=== PATIENT | female | born 1970 | race Caucasian/White ===

== ENCOUNTER → 2016-05-19 | Outpatient (CLI) | payer OTHER ==
[~2016-05-19] MED LIST: ALPR-411 PO; BUPR200T2 PO; BUSP30TA2 PO; CHN5 PO; CLR10 PO; DICY10CA12 PO; DOLU1TAB PO; DOXE50CA3 PO; DXY100 PO; EMTR1TAB10 PO; FLUO10CA48 PO; FLUO40CA8 PO; HYOS0.1271 SL; LEVOIUD PV; LOPE1TAB25 PO; MULTCAP42 PO; NITR1OIN PR; OMEP40CA PO; PNT500 PO; PROM25TA16 PO; TRV PO; ZOLP10TA PO
--- NOTE | 2016-05-19 12:37 | DIAGNOSTIC IMAGING REPORT ---
CHEST CT WITHOUT CONTRAST CT DOSE: 272.52 mGy.cm HISTORY: Follow-up pulmonary nodule. R91.1 Solitary pulmonary nodule TECHNIQUE: Multiaxial CT images of the chest were performed without contrast. COMPARISON: Chest CT 03/12/2015. Chest CT 08/25/2013. FINDINGS: Stable 3 mm nodule within the lingula on image 162. Stable 3 mm nodule within the left lower lobe on image 181. Stable 8 x 6 mm nodule within the right lower lobe on image 225. Stable 3 mm subpleural nodule within the right middle lobe on image 183. Interval development of multiple ground glass tree-in-bud nodules seen within the bilateral upper lobes and left lower lobe. This is most pronounced within the right upper lobe. The central airways are patent. No pleural effusions. No pneumothorax. No mediastinal or hilar lymphadenopathy. Normal caliber thoracic aorta. The heart is normal in size. Stable 7 mm hypodense lesion within the left hepatic lobe. This is too small to characterize but favors a cyst. Normal spleen and adrenal glands. IMPRESSION: 1. The previously described bilateral pulmonary nodules remain stable. Specifically, the 8 x 6 mm nodule within the right lower lobe is unchanged. These demonstrate greater than 2 year stability and are therefore considered to be benign. 2. Interval development of multiple scattered groundglass tree-in-bud nodules seen within the bilateral upper lobes and left lower lobe. This favors an infectious bronchiolitis. Electronically signed by: Saurabh Calloway M.D. 05/19/2016 12:35 PM Dictated Date/Time: 05/19/2016 12:24 PM
== END | disposition home or self-care (01) ==
LOC: C.CTS 11:44
PROVIDERS: ATTEND Internal Medicine Pulmonary Disease
DX: R31.1 Benign essential microscopic hematuria (principal)

== ENCOUNTER → 2016-07-08 | Day surgery (SDC) | payer OTHER ==
[2016-04-14 15:28] VITALS: BMI 32.0
[2016-06-26 12:40] VITALS: Ht 154.9 cm; Wt 77.3 kg
[~2016-07-08] VITALS: Ht 154.9 cm; Wt 77.3 kg
[~2016-07-08] MED LIST changes: +LIDOCAINE HCL 2% 2 ML VIAL (20MG/ML) ONE; +PROPOFOL IV EMULSION 10 MG/ML 20 ML VIAL IV ONE; -TRV PO
--- NOTE | 2016-07-08 09:02 | Endo History and Physical ---
History & Physical Date of Service: Jul 08, 2016. Chief Complaint: CROHN'S Referring Physician: DR. FORREST History of Present Illness 46 yo CF who presents for colonoscopy secondary to Crohn's Disease. Past Medical History Other Psy. Disorders, Gastrointestinal Disorder, Anxiety, Reflux, Cancer, Depression Past Surgical History Hx Cardiac Surgery: No Hx Internal Defibrillator: No Hx Pacemaker: No Hx Abdominal Surgery: Yes (TUBAL LIGATION, SMALL BOWEL RESECTION) Hx of Implantable Prosthesis: No Hx Post-Op Nausea and Vomiting: No Hx Cancer Surgery: Yes (SKIN CANCER REMOVAL) Hx Thoracic Surgery: No Hx Orthopedic: Yes (BROKEN SMALL FINGER AND LEFT ARM FX REPAIR) Hx Urinary Tract Surgery: No Family History IBD Social History Smoking Status: Current Every Day Smoker Hx Substance Use: Yes (QUIT APRIL 2012) Hx Alcohol Use: Yes (QUIT JULY 2015) Allergies Coded Allergies: No Known Allergies (Verified , 07/08/16) Current Medications Reported Home Medications Medications Dose Route/Sig Max Daily Dose Days Date Category Chantix (Varenicline Tartrate) 0.5 Mg Tab 0.5 Mg PO DIRECTED 06/26/16 Reported Descovy 200-25 mg (Emtricitabine-Tenofovir Alafen) 1 Tab Tab 1 Tab PO QAM 06/26/16 Reported Prozac (Fluoxetine HCl) 10 Mg Cap 10 Mg PO QAM 04/14/16 Reported Prozac (Fluoxetine HCl) 40 Mg Cap 40 Mg PO QAM 09/10/15 Reported Sinequan (Doxepin HCl) 50 Mg Cap 2 Cap PO HS 08/20/15 Reported Prilosec (Omeprazole) 40 Mg Capcr 40 Mg PO QAM 08/20/15 Reported Wellbutrin Sr (Bupropion HCl) 200 Mg Ertab 200 Mg PO BID 05/18/14 Reported Tivicay (Dolutegravir Sodium) 50 Mg Tab 50 Mg PO QAM 03/02/14 Reported Rectiv (Nitroglycerin (Intra-Anal)) 0.4 % Oin 1 Inch IN BID PRN 03/02/14 Reported Promethazine HCl 25 Mg Tab 25 Mg PO TID PRN 03/02/14 Reported Mirena (Levonorgestrel (Iud)) 20 Mcg/24 Hr Iud 1 Dose PV Q 5 YEARS 03/02/14 Reported Hyoscyamine Sulfate 0.125 Mg Tab 0.125 Mg SL TID PRN 03/02/14 Reported Doxycycline Hyclate 100 Mg Cap 100 Mg PO QPM 03/02/14 Reported Dicyclomine Hcl 10 Mg Cap 10 Mg PO TID 03/02/14 Reported Buspirone Hcl 30 Mg Tab 30 Mg PO BID 03/02/14 Reported Ambien (Zolpidem Tartrate) 10 Mg Tab 10 Mg PO HS PRN 09/24/12 Reported Pentasa (Mesalamine) 500 Mg Cap 2 Tab PO BID 09/24/12 Reported Multivitamins (Multiple Vitamin) 1 Cap Cap 1 Chw PO QAM 09/24/12 Reported Loperamide Hcl 2 Mg Tab 2 Mg PO DIRECTED PRN 09/24/12 Reported Claritin (Loratadine) 10 Mg Tab 10 Mg PO QAM 09/24/12 Reported Xanax (Alprazolam) 0.5 Mg Tab 0.5 Mg PO QID PRN 09/24/12 Reported Vital Signs Weight (Kilograms): 77.27 Height (Feet): 5 Height (Inches): 1 Date Time Temp Pulse Resp B/P Pulse Ox O2 Delivery O2 Flow Rate FiO2 07/08/16 08:08 36.9 82 16 109/76 96 Room Air Physical Exam General Appearance: WD/WN, no apparent distress Respiratory/Chest: Auscultation: breath sounds normal Cardiovascular: Heart Auscultation: RRR Abdomen: Bowel Sounds: normal Inspection & Palpation: soft, non-distended, no tenderness, guarding & rebound Assessment and Plan Assessment: 46 yo CF who presents for colonoscopy secondary to Crohn's Disease. Plan: Proceed with colonoscopy.
--- NOTE | 2016-07-08 09:30 | Discharge Instructions ---
Endoscopy Patient Instructions Date / Procedure(s) Performed Jul 08, 2016. Colonoscopy Allergy Information Coded Allergies: No Known Allergies (Verified , 07/08/16) Discharge Date / Findings Jul 08, 2016. Anal nodule s/p biopsies Hemorrhoids Random colon biopsies Román-Terminal ileum ulcer Biopsies of terminal ileum Medication Instructions OK to resume all medications today as prescribed. Reported Home Medications Medications Dose Route/Sig Max Daily Dose Days Date Category Chantix (Varenicline Tartrate) 0.5 Mg Tab 0.5 Mg PO DIRECTED 06/26/16 Reported Descovy 200-25 mg (Emtricitabine-Tenofovir Alafen) 1 Tab Tab 1 Tab PO QAM 06/26/16 Reported Prozac (Fluoxetine HCl) 10 Mg Cap 10 Mg PO QAM 04/14/16 Reported Prozac (Fluoxetine HCl) 40 Mg Cap 40 Mg PO QAM 09/10/15 Reported Sinequan (Doxepin HCl) 50 Mg Cap 2 Cap PO HS 08/20/15 Reported Prilosec (Omeprazole) 40 Mg Capcr 40 Mg PO QAM 08/20/15 Reported Wellbutrin Sr (Bupropion HCl) 200 Mg Ertab 200 Mg PO BID 05/18/14 Reported Tivicay (Dolutegravir Sodium) 50 Mg Tab 50 Mg PO QAM 03/02/14 Reported Rectiv (Nitroglycerin (Intra-Anal)) 0.4 % Oin 1 Inch [place] BID PRN 03/02/14 Reported Promethazine HCl 25 Mg Tab 25 Mg PO TID PRN 03/02/14 Reported Mirena (Levonorgestrel (Iud)) 20 Mcg/24 Hr Iud 1 Dose PV Q 5 YEARS 03/02/14 Reported Hyoscyamine Sulfate 0.125 Mg Tab 0.125 Mg SL TID PRN 03/02/14 Reported Doxycycline Hyclate 100 Mg Cap 100 Mg PO QPM 03/02/14 Reported Dicyclomine Hcl 10 Mg Cap 10 Mg PO TID 03/02/14 Reported Buspirone Hcl 30 Mg Tab 30 Mg PO BID 03/02/14 Reported Ambien (Zolpidem Tartrate) 10 Mg Tab 10 Mg PO HS PRN 09/24/12 Reported Pentasa (Mesalamine) 500 Mg Cap 2 Tab PO BID 09/24/12 Reported Multivitamins (Multiple Vitamin) 1 Cap Cap 1 Chw PO QAM 09/24/12 Reported Loperamide Hcl 2 Mg Tab 2 Mg PO DIRECTED PRN 09/24/12 Reported Claritin (Loratadine) 10 Mg Tab 10 Mg PO QAM 09/24/12 Reported Xanax (Alprazolam) 0.5 Mg Tab 0.5 Mg PO QID PRN 09/24/12 Reported Provider Instructions Activity Restrictions - No exercising or heavy lifting for 24 hours. - Do not drink alcohol the day of the procedure. - Do not drive a car or operate machinery until the day after the procedure. - Do not make any important decisions or sign important papers in 24 hours after the procedure. Following Day: - Return to full activity which may include returning to work/school. Diet Start your diet with liquids and light foods (jello, soup, juice, toast). Then eat your usual diet if not nauseated. Treatment For Common After Affects For mild abdominal pain, bloating, or excessive gas: - Rest - Eat lightly - Lie on right side Follow-Up Information Follow-up with DR. FORREST as scheduled Anesthesia Information What You Should Know You have had a procedure that required some medicine to reduce anxiety and discomfort. This treatment is called moderate sedation. After receiving the treatment, you may be sleepy, but you will be able to breathe on your own. The effects of the treatment may last for several hours. Follow these instructions along with Activity/Diet recommendations noted above: * Do NOT do anything where dizziness or clumsiness would be dangerous. * Rest quietly at home today, then you can be up and about tomorrow. * Have a responsible person stay with you the rest of today. * You may have had an I.V. today. If so, you may take the dressing off later today. Recommendations Call your doctor if: * Trouble breathing * Continuous vomiting for more than 24 hours * Temperature above 101 degrees * Severe abdominal pain or bloating * Pain not relieved by pain medicine ordered * There is increased drainage or redness from any incision * A large amount of rectal bleeding greater than 2-3 tablespoons. (If you had a polyp/s removed or have hemorrhoids, a small amount of blood - from the rectum is to be expected.) * You have any unanswered questions or concerns. IN THE EVENT OF A SERIOUS EMERGENCY, GO TO THE NEAREST EMERGENCY ROOM Your discharge instructions were prepared by provider Didier Dacosta. Patient Instructions Signature Page Dorothy Duggan Patient (or Guardian) Signature/Date: I have read and understand the instructions given to me by my caregivers. Caregiver/RN/Doctor Signature/Date: The above-named patient and/or guardian has received patient instructions on this date. + Original Patient Signature Page (only) stays with chart. Please make copy for patient.
--- NOTE | 2016-07-08 09:36 | GI REPORT ---
Procedure Date: 07/08/2016 9:03 AM Procedure: Colonoscopy Indications: Crohn's disease of the small bowel Medicines: Monitored Anesthesia Care Complications: No immediate complications. Estimated Blood Loss: Estimated blood loss: none. Procedure: Pre-Anesthesia Assessment: - Prior to the procedure, a History and Physical was performed, and patient medications and allergies were reviewed. The patient's tolerance of previous anesthesia was also reviewed. The risks and benefits of the procedure and the sedation options and risks were discussed with the patient. All questions were answered, and informed consent was obtained. Prior Anticoagulants: The patient has taken no previous anticoagulant or antiplatelet agents. ASA Grade Assessment: III - A patient with severe systemic disease. After reviewing the risks and benefits, the patient was deemed in satisfactory condition to undergo the procedure. After I obtained informed consent, the scope was passed under direct vision. Throughout the procedure, the patient's blood pressure, pulse, and oxygen saturations were monitored continuously. The scope was introduced through the anus and advanced to the ileocolonic anastomosis. The scope was introduced through the anus and advanced to the ileocolonic anastomosis. The colonoscopy was performed without difficulty. The patient tolerated the procedure well. The quality of the bowel preparation was good. The terminal ileum and the rectum were photographed. Findings: The terminal ileum contained a single (solitary) six mm ulcer. No bleeding was present. Biopsies were taken with a cold forceps for histology. Several random biopsies were obtained with cold forceps for histology in the entire colon. Non-bleeding internal hemorrhoids were found during retroflexion. The hemorrhoids were small. One 8 mm mucosal nodule with probable squamous mucosa was found at the anal verge. Biopsies were taken with a cold forceps for histology. Impression: - A single (solitary) ulcer in the terminal ileum. Biopsied. - Non-bleeding internal hemorrhoids. - Mucosal nodule at the anus. Biopsied. - Several random biopsies were obtained in the entire colon. Recommendation: - Resume previous diet. - Continue present medications. - Repeat colonoscopy for surveillance based on pathology results. - Return to primary care physician as previously scheduled. Didier Dacotsa DO 07/08/2016 9:36:32 AM This report has been signed electronically. Note Initiated On: 07/08/2016 9:03 AM I attest to the content of the Intraoperative Record and orders documented therein, exceptions below
--- NOTE | 2016-07-08 09:54 | Anesthesiology Progress Note ---
Anesthesia Post Op Note Date & Time Jul 08, 2016 at 09:55 Vital Signs Pain Intensity: 0 Vital Signs Past 12 Hours Date Time Temp Pulse Resp B/P Pulse Ox O2 Delivery O2 Flow Rate FiO2 07/08/16 09:46 73 16 98/66 99 Room Air 07/08/16 09:31 79 16 95/64 99 Room Air 07/08/16 08:08 36.9 82 16 109/76 96 Room Air Notes Mental Status: alert / awake / arousable, participated in evaluation Pt Amnestic to Procedure: Yes Nausea / Vomiting: adequately controlled Pain: adequately controlled Airway Patency, RR, SpO2: stable & adequate BP & HR: stable & adequate Hydration State: stable & adequate Anesthetic Complications: no major complications apparent
[2016-07-08 10:02] VITALS: BP 109/73; PULSE 73; O2SAT 99
== END | disposition home or self-care (01) ==
LOC: C.GI 07:18
PROVIDERS: ATTEND Internal Medicine
DX: K50.00 Crohn's disease of small intestine without complications (principal); A63.0 Anogenital (venereal) warts; K63.3 Ulcer of intestine; K64.8 Other hemorrhoids; Z98.0 Intestinal bypass and anastomosis status; Z90.49 Acquired absence of other specified parts of digestive tract; K21.9 Gastro-esophageal reflux disease without esophagitis; Z83.79 Family history of other diseases of the digestive system; F41.9 Anxiety disorder, unspecified; F32.9 Major depressive disorder, single episode, unspecified; Z98.51 Tubal ligation status; F17.210 Nicotine dependence, cigarettes, uncomplicated

== ENCOUNTER → 2016-07-29 | Outpatient (CLI) | payer OTHER ==
[~2016-07-29] MED LIST changes: -LIDOCAINE HCL 2% 2 ML VIAL (20MG/ML) ONE; -PROPOFOL IV EMULSION 10 MG/ML 20 ML VIAL IV ONE
[2016-07-29 10:32] LABS: BASO % 1.1 %; BASO ABS # 0.07 K/uL (0-0.2); COMPLETE YES; EOS % 4.4 %; HEMATOCRIT 41.1 % (37-47); IG% 0.2 %; LYMPH ABS # 2.35 K/uL (1.2-3.4); MEAN CELL VOLUME 88.4 fL (80-100); MEAN CORPUSCULAR HEMOGLOBIN 31.2 pg (25-34); MEAN CORPUSCULAR HGB CONC 35.3 g/dl (32-36); MEAN PLATELET VOLUME 11.1 fL (7.4-10.4); MONO % 7.4 %; NEUT % 48.9 %; PLATELET COUNT 289 K/uL (130-400); RED BLOOD COUNT 4.65 M/uL (4.2-5.4); WHITE BLOOD COUNT 6.19 K/uL (4.8-10.8)
[2016-07-29 10:46] LABS: ALB/GLOB RATIO 0.9 (0.9-2); ALT/SGPT 33 U/L (12-78); AST/SGOT 17 U/L (15-37); BLOOD UREA NITROGEN 12 mg/dl (7-18); BUN/CREATININE RATIO 12.2 (10-20); CALCIUM 9.4 mg/dl (8.5-10.1); CARBON DIOXIDE 25 mmol/L (21-32); CHLORIDE 104 mmol/L (98-107); CHOLESTEROL 168 mg/dl (0-200); CREATININE 0.97 mg/dl (0.60-1.20); GLUCOSE 99 mg/dl (70-99); POTASSIUM 3.8 mmol/L (3.5-5.1); SODIUM 138 mmol/L (136-145); TRIGLYCERIDES 110 mg/dl (0-150); VERY LOW DENSITY LIPOPROT CALC 22 mg/dl
[2016-07-29 10:49] LABS: ALKALINE PHOSPHATASE 99 U/L (45-117); CHOLESTEROL/HDL RATIO 3.9; HDL CHOLESTEROL 43 mg/dl; LDL CHOLESTEROL CALCULATED 103 mg/dl
[2016-07-31 17:36] LABS: LSP % CELLS ANALYZED CD4 22 % (30-61); LSP ABSOLUTE CT CD4 466 cells/uL (490-1740); LSP LYMPHOCYTES ABSOLUTE 2141 cells/uL (850-3900)
== END | disposition home or self-care (01) ==
LOC: C.LABBC 07:55
PROVIDERS: ATTEND Internal Medicine Infectious Disease
DX: B20 Human immunodeficiency virus [HIV] disease (principal)

== ENCOUNTER → 2016-10-07 | Outpatient (CLI) | payer OTHER | END | disposition home or self-care (01) | LOC: C.PATHSPEC 19:05 | PROVIDERS: ATTEND Plastic Surgery | DX: D23.9 Other benign neoplasm of skin, unspecified (principal) ==

== ENCOUNTER → 2016-11-12 | Outpatient (CLI) | payer OTHER ==
[2016-11-12 11:34] LABS: THYROID STIMULATING HORMONE 0.831 uIu/ml (0.300-4.500)
== END | disposition home or self-care (01) ==
LOC: C.LABBC 08:20
PROVIDERS: ATTEND Internal Medicine
DX: R68.89 Other general symptoms and signs (principal); B20 Human immunodeficiency virus [HIV] disease

== ENCOUNTER → 2016-12-16 | Outpatient (CLI) | payer OTHER ==
[2016-12-16 12:40] LABS: URINE APPEARANCE CLEAR (CLEAR); URINE BILIRUBIN NEG (NEG); URINE COLOR YELLOW; URINE EPITHELIAL CELL AUTO >30 /lpf (0-5); URINE NITRITE NEG (NEG); URINE PH 5.5 (4.5-7.5); URINE SPECIFIC GRAVITY 1.015 (1.000-1.030); UROBILINOGEN NEG (NEG)
[2016-12-16 12:46] LABS: MANUAL MICROSCOPIC REQUIRED? NO; REVIEW REQ? NO
== END | disposition home or self-care (01) ==
LOC: C.LABSPEC 11:41
PROVIDERS: ATTEND Physician Assistant
DX: N89.8 Other specified noninflammatory disorders of vagina (principal); R10.2 Pelvic and perineal pain; R39.9 Unspecified symptoms and signs involving the genitourinary system

== ENCOUNTER → 2016-12-16 | Outpatient (CLI) | payer OTHER ==
--- NOTE | 2016-12-17 16:02 | MAMMOGRAPHY REPORT ---
BILATERAL DIGITAL SCREENING MAMMOGRAM TOMOSYNTHESIS WITH CAD: 12/16/2016 CLINICAL HISTORY: Routine screening. Patient has no complaints. TECHNIQUE: Breast tomosynthesis in addition to standard 2D mammography was performed. Current study was also evaluated with a Computer Aided Detection (CAD) system. COMPARISON: Comparison is made to exams dated: 10/24/2015 mammogram, 08/21/2014 mammogram, 08/18/2013 m ammogram, 04/01/2013 mammogram, 09/24/2012 mammogram, and 08/17/2012 mammogram - [facility] enter. BREAST COMPOSITION: The tissue of both breasts is heterogeneously dense, which may obscure small mas ses. FINDINGS: No suspicious mass, architectural distortion or cluster of new, suspicious microcalcificat ions is seen. IMPRESSION: ACR BI-RADS CATEGORY 1: NEGATIVE There is no mammographic evidence of malignancy. A 1 year screening mammogram is recommended. The pa tient will receive written notification of the results. Approximately 10% of breast cancers are not detected with mammography. A negative mammographic report should not delay biopsy if a clinically suggestive mass is present. Linda Mccord M.D. ay/:12/16/2016 18:51:51 Movement Education Specialist: Traci CONNOR(Andrew)(M), [facility] letter sent: Normal 1/2 BI-RADS Code: ACR BI-RADS Category 1: Negative
== END | disposition home or self-care (01) ==
LOC: C.MAMM 08:50
PROVIDERS: ATTEND Obstetrics & Gynecology
DX: Z12.31 Encounter for screening mammogram for malignant neoplasm of breast (principal); N89.8 Other specified noninflammatory disorders of vagina; R10.2 Pelvic and perineal pain; R39.9 Unspecified symptoms and signs involving the genitourinary system

== ENCOUNTER → 2016-12-23 | Outpatient (CLI) | payer OTHER ==
[2016-12-23 12:29] LABS: URINE APPEARANCE CLOUDY (CLEAR); URINE BILIRUBIN NEG (NEG); URINE COLOR YELLOW; URINE EPITHELIAL CELL AUTO 20-30 /lpf (0-5); URINE NITRITE NEG (NEG); URINE SPECIFIC GRAVITY 1.011 (1.000-1.030); UROBILINOGEN NEG (NEG)
[2016-12-23 12:36] LABS: MANUAL MICROSCOPIC REQUIRED? NO; REVIEW REQ? NO
== END | disposition home or self-care (01) ==
LOC: C.LAB1850 11:06
PROVIDERS: ATTEND Physician Assistant
DX: R39.9 Unspecified symptoms and signs involving the genitourinary system (principal)

== ENCOUNTER → 2017-02-03 | Outpatient (CLI) | payer OTHER ==
[2017-02-03 11:03] LABS: BASO % 0.7 %; BASO ABS # 0.05 K/uL (0-0.2); COMPLETE YES; EOS % 2.4 %; IG% 0.1 %; LYMPH % 25.5 %; LYMPH ABS # 1.71 K/uL (1.2-3.4); MEAN CELL VOLUME 93.1 fL (80-100); MEAN CORPUSCULAR HGB CONC 34.4 g/dl (32-36); MEAN PLATELET VOLUME 12.2 fL (7.4-10.4); MONO % 9.1 %; NEUT % 62.2 %; PLATELET COUNT 226 K/uL (130-400); RED BLOOD COUNT 4.19 M/uL (4.2-5.4)
[2017-02-03 11:17] LABS: ALT/SGPT 27 U/L (12-78); AST/SGOT 15 U/L (15-37); BLOOD UREA NITROGEN 9 mg/dl (7-18); BUN/CREATININE RATIO 8.2 (10-20); CALCIUM 9.3 mg/dl (8.5-10.1); CARBON DIOXIDE 27 mmol/L (21-32); CHLORIDE 104 mmol/L (98-107); GLUCOSE 96 mg/dl (70-99); POTASSIUM 3.7 mmol/L (3.5-5.1); SODIUM 138 mmol/L (136-145)
[2017-02-03 11:21] LABS: ALB/GLOB RATIO 0.8 (0.9-2); ALKALINE PHOSPHATASE 101 U/L (45-117); CHOLESTEROL 133 mg/dl (0-200); CHOLESTEROL/HDL RATIO 2.9; HDL CHOLESTEROL 46 mg/dl; LDL CHOLESTEROL CALCULATED 73 mg/dl; TRIGLYCERIDES 70 mg/dl (0-150); VERY LOW DENSITY LIPOPROT CALC 14 mg/dl
== END | disposition home or self-care (01) ==
LOC: C.LABBC 07:27
PROVIDERS: ATTEND Internal Medicine Infectious Disease
DX: B20 Human immunodeficiency virus [HIV] disease (principal)

== ENCOUNTER → 2017-04-30 | Outpatient (CLI) | payer OTHER ==
[~2017-04-30] MED LIST changes: -CHN5 PO; +CHOL1000 PO; +CHOL1TAB46 PO; +CYAN10005 PO; +DOXY100C2 PO; -DXY100 PO; +GABA-112 PO; +LEVO1IUD2 PV; -LEVOIUD PV; +LINA1CAP PO; +METH4PAK PO; -OMEP40CA PO; +OMEP40CA41 PO; +PHEN30CA PO; +VNTHFA/IN INH
[2017-04-30 17:23] LABS: INFLUENZA B PCR Neg for Influ B (NEG)
[2017-04-30 18:38] LABS: INFLUENZA A PCR POS for Influ A (NEG)
== END | disposition home or self-care (01) ==
LOC: C.LAB1850 14:54
PROVIDERS: ATTEND Physician Assistant
DX: R68.89 Other general symptoms and signs (principal)

== ENCOUNTER → 2017-05-14 | Outpatient (CLI) | payer OTHER ==
[~2017-05-14] MED LIST changes: -CHOL1TAB46 PO; -DOXY100C2 PO; -LINA1CAP PO; -METH4PAK PO; -VNTHFA/IN INH
[2017-05-14 10:59] LABS: BASO % 0.8 %; BASO ABS # 0.07 K/uL (0-0.2); EOS % 0.8 %; EOS ABS # 0.07 K/uL (0-0.5); HEMATOCRIT 39.3 % (37-47); HEMOGLOBIN 13.6 g/dL (12.0-16.0); IG# 0.02 K/uL (0.00-0.02); LYMPH % 19.3 %; LYMPH ABS # 1.71 K/uL (1.2-3.4); MEAN CELL VOLUME 92.7 fL (80-100); MEAN CORPUSCULAR HEMOGLOBIN 32.1 pg (25-34); MEAN CORPUSCULAR HGB CONC 34.6 g/dl (32-36); MEAN PLATELET VOLUME 11.6 fL (7.4-10.4); MONO % 7.9 %; NEUT ABS # 6.28 K/uL (1.4-6.5); PLATELET COUNT 303 K/uL (130-400); RED CELL DISTRIBUTION WIDTH CV 13.3 % (11.5-14.5); RED CELL DISTRIBUTION WIDTH SD 44.8 fL (36.4-46.3); WHITE BLOOD COUNT 8.85 K/uL (4.8-10.8)
[2017-05-14 11:30] LABS: ALT/SGPT 21 U/L (12-78); AST/SGOT 15 U/L (15-37); BLOOD UREA NITROGEN 13 mg/dl (7-18); CALCIUM 9.3 mg/dl (8.5-10.1); CARBON DIOXIDE 27 mmol/L (21-32); CREATININE 1.16 mg/dl (0.60-1.20); GLUCOSE 87 mg/dl (70-99); POTASSIUM 3.9 mmol/L (3.5-5.1); SODIUM 133 mmol/L (136-145)
[2017-05-14 11:33] LABS: ALKALINE PHOSPHATASE 90 U/L (45-117); CHOLESTEROL 140 mg/dl (0-200); LDL CHOLESTEROL CALCULATED 75 mg/dl; TOTAL PROTEIN 8.5 gm/dl (6.4-8.2)
== END | disposition home or self-care (01) ==
LOC: C.LABBC 08:02
PROVIDERS: ATTEND Internal Medicine Infectious Disease
DX: B20 Human immunodeficiency virus [HIV] disease (principal)

== ENCOUNTER → 2017-05-14 | Outpatient (CLI) | payer OTHER | END | disposition home or self-care (01) | LOC: C.PAPS 13:34 | PROVIDERS: ATTEND Obstetrics & Gynecology | DX: R87.610 Atypical squamous cells of undetermined significance on cytologic smear of cervix (ASC-US) (principal); R87.810 Cervical high risk human papillomavirus (HPV) DNA test positive; Z97.5 Presence of (intrauterine) contraceptive device ==

== ENCOUNTER → 2017-05-14 | Outpatient (CLI) | payer OTHER | END | disposition home or self-care (01) | LOC: C.PATHSPEC 13:42 | PROVIDERS: ATTEND Obstetrics & Gynecology | DX: R87.610 Atypical squamous cells of undetermined significance on cytologic smear of cervix (ASC-US) (principal); R87.810 Cervical high risk human papillomavirus (HPV) DNA test positive ==

== ENCOUNTER → 2017-06-15 | Day surgery (SDC) | payer OTHER ==
[~2017-06-15] VITALS: Ht 154.9 cm; Wt 73.2 kg
[~2017-06-15] MED LIST changes: +LIDOCAINE HCL 2% 2 ML VIAL (20MG/ML) ONE; +PROPOFOL IV EMULSION 10 MG/ML 20 ML VIAL IV ONE
[2017-06-15 08:07] VITALS: Ht 154.9 cm; Wt 73.2 kg
[2017-06-15 08:18] VITALS: TEMP 37
--- NOTE | 2017-06-15 08:19 | Endo History and Physical ---
History & Physical Date of Service: Jun 15, 2017. Chief Complaint: Crohn's Disease, Anal Condyloma Referring Physician: Dr. Montoya History of Present Illness 47 yo CF who presents for colonoscopy secondary to Crohn's Disease and Anal Condyloma Past Medical History Other Psy. Disorders, Gastrointestinal Disorder, Anxiety, Reflux, Cancer, Depression Past Surgical History Hx Cardiac Surgery: No Hx Internal Defibrillator: No Hx Pacemaker: No Hx Abdominal Surgery: Yes (TUBAL LIGATION, SMALL BOWEL RESECTION) Hx of Implantable Prosthesis: No Hx Post-Op Nausea and Vomiting: No Hx Cancer Surgery: Yes (SKIN CANCER REMOVAL) Hx Thoracic Surgery: No Hx Orthopedic: Yes (BROKEN SMALL FINGER AND LEFT ARM FX REPAIR) Hx Urinary Tract Surgery: No Family History IBD Social History Smoking Status: Former Smoker Hx Substance Use: Yes (QUIT APRIL 2012) Hx Alcohol Use: Yes (QUIT JULY 2015) Allergies Coded Allergies: No Known Allergies (Verified , 06/15/17) Current Medications Reported Home Medications Medications Dose Route/Sig Max Daily Dose Days Date Category Vitamin B-12 (Cyanocobalamin) 1,000 Mcg Tab 1,000 Mcg PO DAILY 04/10/17 Reported Vitamin D3 (Cholecalciferol) 1,000 Unit Tab 1 Tab PO DAILY 04/10/17 Reported Phentermine Hcl 30 Mg Cap 1 Cap PO 1400 04/10/17 Reported Prilosec (Omeprazole) 40 Mg Cap 40 Mg PO QAM 04/10/17 Reported Neurontin (Gabapentin) 100 Mg Cap 100 Mg PO HS 04/10/17 Reported Descovy 200-25 mg (Emtricitabine-Tenofovir Alafen) 1 Tab Tab 1 Tab PO QAM 06/26/16 Reported Prozac (Fluoxetine HCl) 10 Mg Cap 10 Mg PO QAM 04/14/16 Reported Prozac (Fluoxetine HCl) 40 Mg Cap 40 Mg PO QAM 09/10/15 Reported Sinequan (Doxepin HCl) 50 Mg Cap 2 Cap PO HS 08/20/15 Reported Wellbutrin Sr (Bupropion HCl) 200 Mg Ertab 200 Mg PO BID 05/18/14 Reported Tivicay (Dolutegravir Sodium) 50 Mg Tab 50 Mg PO QAM 03/02/14 Reported Rectiv (Nitroglycerin (Intra-Anal)) 0.4 % Oin 1 Inch SC BID PRN 03/02/14 Reported Promethazine HCl 25 Mg Tab 25 Mg PO TID PRN 03/02/14 Reported Mirena (Levonorgestrel (Iud)) 20 Mcg/24 Hr Iud 1 Dose PV Q 5 YEARS 03/02/14 Reported Hyoscyamine Sulfate 0.125 Mg Tab 0.125 Mg SL TID PRN 03/02/14 Reported Dicyclomine Hcl 10 Mg Cap 10 Mg PO TID PRN 03/02/14 Reported Buspirone Hcl 30 Mg Tab 30 Mg PO BID 03/02/14 Reported Ambien (Zolpidem Tartrate) 10 Mg Tab 10 Mg PO HS PRN 09/24/12 Reported Pentasa (Mesalamine) 500 Mg Cap 2 Tab PO BID 09/24/12 Reported Loperamide Hcl 2 Mg Tab 2 Mg PO DIRECTED PRN 09/24/12 Reported Claritin (Loratadine) 10 Mg Tab 10 Mg PO QAM 09/24/12 Reported Xanax (Alprazolam) 0.5 Mg Tab 0.5 Mg PO QID PRN 09/24/12 Reported Vital Signs Weight (Kilograms): 73.18 Height (Feet): 5 Height (Inches): 1 Physical Exam General Appearance: WD/WN, no apparent distress Respiratory/Chest: Auscultation: breath sounds normal Cardiovascular: Heart Auscultation: RRR Abdomen: Bowel Sounds: normal Inspection & Palpation: soft, non-distended, no tenderness, guarding & rebound Assessment and Plan Assessment: 47 yo CF who presents for colonoscopy secondary to Crohn's Disease and Anal Condyloma Plan: Proceed with colonoscopy.
--- NOTE | 2017-06-15 08:51 | GI REPORT ---
Procedure Date: 06/15/2017 8:28 AM Procedure: Colonoscopy Indications: Disease activity assessment of Crohn's disease of the small bowel Medicines: Monitored Anesthesia Care Complications: No immediate complications. Estimated Blood Loss: Estimated blood loss: none. Procedure: Pre-Anesthesia Assessment: - Prior to the procedure, a History and Physical was performed, and patient medications and allergies were reviewed. The patient's tolerance of previous anesthesia was also reviewed. The risks and benefits of the procedure and the sedation options and risks were discussed with the patient. All questions were answered, and informed consent was obtained. Prior Anticoagulants: The patient has taken no previous anticoagulant or antiplatelet agents. ASA Grade Assessment: II - A patient with mild systemic disease. After reviewing the risks and benefits, the patient was deemed in satisfactory condition to undergo the procedure. After I obtained informed consent, the scope was passed under direct vision. Throughout the procedure, the patient's blood pressure, pulse, and oxygen saturations were monitored continuously. The scope was introduced through the anus and advanced to the ileocolonic anastomosis. The colonoscopy was performed without difficulty. The patient tolerated the procedure well. The quality of the bowel preparation was good. The terminal ileum, ileocecal valve, appendiceal orifice, and rectum were photographed. Findings: The perianal and digital rectal examinations were normal. There was evidence of a prior end-to-side ileo-colonic anastomosis in the ascending colon. This was patent and was characterized by healthy appearing mucosa. The anastomosis was traversed. The exam was otherwise without abnormality. Impression: - Patent end-to-side ileo-colonic anastomosis, characterized by healthy appearing mucosa. - The examination was otherwise normal. - No specimens collected. Recommendation: - Resume previous diet. - Continue present medications. - Repeat colonoscopy in 2 years for surveillance. - Return to primary care physician as previously scheduled. Didier Dacosta DO 06/15/2017 8:51:07 AM This report has been signed electronically. Note Initiated On: 06/15/2017 8:28 AM I attest to the content of the Intraoperative Record and orders documented therein, exceptions below
--- NOTE | 2017-06-15 08:54 | Discharge Instructions ---
Endoscopy Patient Instructions Date / Procedure(s) Performed Jun 15, 2017. Colonoscopy Allergy Information Coded Allergies: No Known Allergies (Verified , 06/15/17) Discharge Date / Findings Jun 15, 2017. Normal colonoscopy Medication Instructions OK to resume all medications today as prescribed Reported Home Medications Medications Dose Route/Sig Max Daily Dose Days Date Category Vitamin B-12 (Cyanocobalamin) 1,000 Mcg Tab 1,000 Mcg PO DAILY 04/10/17 Reported Vitamin D3 (Cholecalciferol) 1,000 Unit Tab 1 Tab PO DAILY 04/10/17 Reported Phentermine Hcl 30 Mg Cap 1 Cap PO 1400 04/10/17 Reported Prilosec (Omeprazole) 40 Mg Cap 40 Mg PO QAM 04/10/17 Reported Neurontin (Gabapentin) 100 Mg Cap 100 Mg PO HS 04/10/17 Reported Descovy 200-25 mg (Emtricitabine-Tenofovir Alafen) 1 Tab Tab 1 Tab PO QAM 06/26/16 Reported Prozac (Fluoxetine HCl) 10 Mg Cap 10 Mg PO QAM 04/14/16 Reported Prozac (Fluoxetine HCl) 40 Mg Cap 40 Mg PO QAM 09/10/15 Reported Sinequan (Doxepin HCl) 50 Mg Cap 2 Cap PO HS 08/20/15 Reported Wellbutrin Sr (Bupropion HCl) 200 Mg Ertab 200 Mg PO BID 05/18/14 Reported Tivicay (Dolutegravir Sodium) 50 Mg Tab 50 Mg PO QAM 03/02/14 Reported Rectiv (Nitroglycerin (Intra-Anal)) 0.4 % Oin 1 Inch [place] BID PRN 03/02/14 Reported Promethazine HCl 25 Mg Tab 25 Mg PO TID PRN 03/02/14 Reported Mirena (Levonorgestrel (Iud)) 20 Mcg/24 Hr Iud 1 Dose PV Q 5 YEARS 03/02/14 Reported Hyoscyamine Sulfate 0.125 Mg Tab 0.125 Mg SL TID PRN 03/02/14 Reported Dicyclomine Hcl 10 Mg Cap 10 Mg PO TID PRN 03/02/14 Reported Buspirone Hcl 30 Mg Tab 30 Mg PO BID 03/02/14 Reported Ambien (Zolpidem Tartrate) 10 Mg Tab 10 Mg PO HS PRN 09/24/12 Reported Pentasa (Mesalamine) 500 Mg Cap 2 Tab PO BID 09/24/12 Reported Loperamide Hcl 2 Mg Tab 2 Mg PO DIRECTED PRN 09/24/12 Reported Claritin (Loratadine) 10 Mg Tab 10 Mg PO QAM 09/24/12 Reported Xanax (Alprazolam) 0.5 Mg Tab 0.5 Mg PO QID PRN 09/24/12 Reported Provider Instructions Activity Restrictions - No exercising or heavy lifting for 24 hours. - Do not drink alcohol the day of the procedure. - Do not drive a car or operate machinery until the day after the procedure. - Do not make any important decisions or sign important papers in 24 hours after the procedure. Following Day: - Return to full activity which may include returning to work/school. Diet Start your diet with liquids and light foods (jello, soup, juice, toast). Then eat your usual diet if not nauseated. Treatment For Common After Affects For mild abdominal pain, bloating, or excessive gas: - Rest - Eat lightly - Lie on right side Follow-Up Information Follow-up with DR. FORREST as scheduled Anesthesia Information What You Should Know You have had a procedure that required some medicine to reduce anxiety and discomfort. This treatment is called moderate sedation. After receiving the treatment, you may be sleepy, but you will be able to breathe on your own. The effects of the treatment may last for several hours. Follow these instructions along with Activity/Diet recommendations noted above: * Do NOT do anything where dizziness or clumsiness would be dangerous. * Rest quietly at home today, then you can be up and about tomorrow. * Have a responsible person stay with you the rest of today. * You may have had an I.V. today. If so, you may take the dressing off later today. Recommendations Call your doctor if: * Trouble breathing * Continuous vomiting for more than 24 hours * Temperature above 101 degrees * Severe abdominal pain or bloating * Pain not relieved by pain medicine ordered * There is increased drainage or redness from any incision * A large amount of rectal bleeding greater than 2-3 tablespoons. (If you had a polyp/s removed or have hemorrhoids, a small amount of blood - from the rectum is to be expected.) * You have any unanswered questions or concerns. IN THE EVENT OF A SERIOUS EMERGENCY, GO TO THE NEAREST EMERGENCY ROOM Your discharge instructions were prepared by provider Didier G. Case. Patient Instructions Signature Page Dorothy Duggan Patient (or Guardian) Signature/Date: I have read and understand the instructions given to me by my caregivers. Caregiver/RN/Doctor Signature/Date: The above-named patient and/or guardian has received patient instructions on this date. + Original Patient Signature Page (only) stays with chart. Please make copy for patient.
[2017-06-15 09:18] VITALS: BP 103/75; PULSE 76; O2SAT 98
--- NOTE | 2017-06-15 09:19 | Anesthesiology Progress Note ---
Anesthesia Post Op Note Date & Time Jun 15, 2017 at 09:18 Vital Signs Pain Intensity: 0 Vital Signs Past 12 Hours Date Time Temp Pulse Resp B/P (MAP) Pulse Ox O2 Delivery O2 Flow Rate FiO2 06/15/17 09:03 82 16 110/56 (74) 99 Room Air 06/15/17 08:48 72 12 87/47 (60) 95 Room Air 06/15/17 08:18 37.0 81 20 106/70 (82) 93 Room Air Notes Mental Status: alert / awake / arousable, participated in evaluation Pt Amnestic to Procedure: Yes Nausea / Vomiting: adequately controlled Pain: adequately controlled Airway Patency, RR, SpO2: stable & adequate BP & HR: stable & adequate Hydration State: stable & adequate Anesthetic Complications: no major complications apparent
== END | disposition home or self-care (01) ==
LOC: C.GI 07:11
PROVIDERS: ATTEND Internal Medicine
DX: K50.90 Crohn's disease, unspecified, without complications (principal); A63.0 Anogenital (venereal) warts; K21.9 Gastro-esophageal reflux disease without esophagitis; E66.9 Obesity, unspecified; F41.9 Anxiety disorder, unspecified; G47.33 Obstructive sleep apnea (adult) (pediatric); F32.9 Major depressive disorder, single episode, unspecified; Z98.51 Tubal ligation status; Z87.81 Personal history of (healed) traumatic fracture; Z85.820 Personal history of malignant melanoma of skin; Z87.891 Personal history of nicotine dependence

== ENCOUNTER → 2017-07-01 | Outpatient (CLI) | payer OTHER ==
[~2017-07-01] MED LIST changes: -LIDOCAINE HCL 2% 2 ML VIAL (20MG/ML) ONE; -MULTCAP42 PO; +OPTIRAY 320 IV PRN; -PROPOFOL IV EMULSION 10 MG/ML 20 ML VIAL IV ONE
--- NOTE | 2017-07-01 16:48 | DIAGNOSTIC IMAGING REPORT ---
CT SCAN OF THE ABDOMEN AND PELVIS WITH IV CONTRAST CLINICAL HISTORY: Upper abdominal pain. Reported history of Crohn's disease. COMPARISON STUDY: Abdominal CT dated 05/18/2014 and 08/09/2013. TECHNIQUE: Following the IV administration of 90 cc of Optiray 320, CT scan of the abdomen and pelvis is performed from the lung bases to the proximal femora. Images are reviewed in the axial, sagittal, and coronal planes. IV contrast was administered without complication. A dose lowering technique was utilized adhering to the principles of ALARA. CT DOSE: 369.93 mGy.cm FINDINGS: Lung bases: The heart is normal in size and without pericardial effusion. There is a 10 mm pulmonary nodule at the right lung base seen on image #88. The lung bases are otherwise clear noting bibasilar scarring versus atelectasis. Liver: The contrast-enhanced liver is normal in size, contour, and attenuation. There is no intrahepatic biliary ductal dilatation. The hepatic veins and portal veins are patent. A 10 mm cyst is identified in the right hepatic lobe. Gallbladder: Unremarkable. Spleen: Normal in size and attenuation. Pancreas: Unremarkable. Adrenal glands: Unremarkable. Kidneys: The contrast enhanced kidneys are normal in size and without hydronephrosis. The kidneys enhance symmetrically. There is a 3 mm nonobstructing calculus in the lower pole of the right kidney. Subcentimeter cortical hypodensities in each kidney likely represent cysts but are too small for definitive characterization. A retroaortic left renal vein is incidentally noted. Abdominal vasculature: The abdominal aorta is normal in course and caliber. Bowel: There is mild colonic fecal retention. There are postoperative changes from ileocecectomy with ileocolic anastomosis. No bowel obstruction is seen. Peritoneum: There is no intraperitoneal free air or abdominal ascites. Lymphadenopathy: None. Pelvic viscera: The bladder, uterus, and adnexa are normal as visualized noting bilateral ovarian follicles and an intrauterine device in place. Skeletal structures: No lytic or blastic lesions are seen. IMPRESSION: 1. There are no acute infectious or inflammatory findings in the abdomen or pelvis. 2. There are postoperative changes from ileocecectomy with ileocolic anastomosis. No bowel obstruction is seen. 3. Small nonobstructing right renal calculus. 4. There is a 10 mm pulmonary nodule at the right lung base. This appears minimally increased in size from studies dating back to 2013. This nodule remains pathologically indeterminant. A low-grade neoplasm such as carcinoid is not excluded. Electronically signed by: Garfield Small M.D. 07/01/2017 4:46 PM Dictated Date/Time: 07/01/2017 4:38 PM
== END | disposition home or self-care (01) ==
LOC: C.CTS 14:11
PROVIDERS: ATTEND Physician Assistant Medical
DX: K50.90 Crohn's disease, unspecified, without complications (principal); R10.10 Upper abdominal pain, unspecified; N20.0 Calculus of kidney; R91.1 Solitary pulmonary nodule

== ENCOUNTER 2017-07-03 08:22 | Emergency (ER) | payer OTHER ==
[~2017-07-03] VITALS: Ht 154.9 cm; Wt 75.1 kg
[~2017-07-03 08:22] MED LIST changes: -OPTIRAY 320 IV PRN
[2017-07-03 08:26] VITALS: Ht 154.9 cm; Wt 75.1 kg
--- NOTE | 2017-07-03 09:17 | DIAGNOSTIC IMAGING REPORT ---
PA CHEST WITH ABDOMINAL SERIES CLINICAL HISTORY: Generalized abdominal pain. Constipation. FINDINGS: A PA chest radiograph is compared to study dated 08/08/2015. The cardiomediastinal silhouette is unremarkable. There is atherosclerotic calcification of the thoracic aorta. The lungs and pleural spaces are clear. No pneumothorax is seen. The bony thorax is grossly intact. Supine and erect abdominal radiographs are correlated with abdominal CT dated 07/01/2017. There is a nonobstructed abdominal bowel gas pattern. Moderate colonic fecal retention is noted. No evidence of intraperitoneal free air is seen. Suture material is seen in the right upper quadrant. There are no abnormal abdominal calcifications. An intrauterine device is seen in the pelvis. There are small pelvic phleboliths. The lumbosacral spine and bony pelvis appear intact. There is a naval piercing. IMPRESSION: 1. No active disease in the chest. 2. Nonobstructed abdominal bowel gas pattern noting moderate colonic fecal retention. Electronically signed by: Garfield Small M.D. 07/03/2017 9:16 AM Dictated Date/Time: 07/03/2017 9:12 AM
--- NOTE | 2017-07-03 09:25 | EMERGENCY ROOM VISIT NOTE ---
ED Visit Note First contact with patient: 08:29 I have seen and examined this patient with Jennifer Marie and generally agree with the treatment plan as discussed. Problem List Medical Problems: (1) Crohns disease Status: Chronic (2) Insomnia Status: Chronic Current/Historical Medications Scheduled Bupropion (Wellbutrin Sr), 200 MG PO BID Buspirone Hcl (Buspirone Hcl), 30 MG PO BID Cholecalciferol (Vitamin D3), 1,000 UNITS PO DAILY Cyanocobalamin (Vitamin B-12), 1,000 MCG PO DAILY Dolutegravir Sodium (Tivicay), 50 MG PO QAM Emtricitabine-Tenofovir Alafen (Descovy 200-25 mg), 1 TAB PO QAM Fluoxetine (Prozac), 40 MG PO QAM Fluoxetine (Prozac), 10 MG PO QAM Gabapentin (Neurontin), 100 MG PO HS Levonorgestrel (Iud) (Mirena), 1 DOSE PV q 5 years Loratadine (Claritin), 10 MG PO QAM Mesalamine (Pentasa), 1,000 MG PO BID Omeprazole (Prilosec), 40 MG PO QAM Phentermine Hcl (Phentermine Hcl), 30 MG PO 1400 Scheduled PRN Alprazolam (Xanax), 0.5 MG PO QID PRN for Anxiety Dicyclomine Hcl (Dicyclomine Hcl), 10 MG PO TID PRN for ABDOMINAL PAIN Hyoscyamine Sulfate (Hyoscyamine Sulfate), 0.125 MG SL TID PRN for belly pain Loperamide Hcl (Loperamide Hcl), 2 MG PO DIRECTED PRN for Diarrhea Promethazine HCl (Promethazine HCl), 25 MG PO TID PRN for Nausea Zolpidem Tartrate (Ambien), 10 MG PO HS PRN Allergies Coded Allergies: No Known Allergies (Verified , 07/03/17) Vital Signs Date Time Temp Pulse Resp B/P (MAP) Pulse Ox O2 Delivery O2 Flow Rate FiO2 07/03/17 08:26 37.1 104 16 116/76 98 Room Air Departure Information Referrals RV. Gardiner MD (PCP) Patient Instructions [facility]
[2017-07-03] MEDS ORDERED: SOAP SUDS ENEMA PR STA (09:26)
[2017-07-03] MEDS ORDERED: DICYCLOMINE HCL 10 MG CAP PO ONE (10:00)
[2017-07-03 10:45] VITALS: TEMP 36.4
--- NOTE | 2017-07-03 11:29 | EMERGENCY ROOM VISIT NOTE ---
History First contact with patient: 08:29 Chief Complaint: GI ASSESSMENT Stated Complaint: SHARP PAIN (HARD TO BREATH) HAVE CROHNS AND HIV Nursing Triage Summary: Patient presents ambulatory to triage with c/o abdominal pain and distention for the last week She has a history of Crohn's disease and HIV States she had a colonoscopy [address] Praneeth Ward she also has sore throat and white spots in her mouth, these symptoms began 2 days ago History of Present Illness The patient is a 47 year old female who presents to the Emergency Room with complaints of abdominal pain. The patient has a history of Crohn's disease and HIV. The patient has been having abdominal pain mainly around her vertical incision on her abdomen for over 1 week. She had a colonoscopy done on June 15 which was normal. She also had a CAT scan done 2 days ago which was normal. The patient states she does not have anything at home to take for pain. The patient denies any nausea or vomiting. The patient states she has not moved her bowels for 2 days which is unusual for her. She has not been taking any narcotics for pain. Patient also states that she has had a sore throat for the past 2 days. She saw her PCP yesterday for the sore throat. At that time she had a white spot on the back of her throat and they were unsure of the diagnosis and therefore gave her Valtrex. The patient states that she woke up this morning and she has lower throat pain. Patient denies any head congestion, fever, ear pain, cough or chest tightness. The patient states she is mainly here for pain control. Review of Systems 10 system review was performed and was negative unless stated otherwise history of present illness. Past Medical/Surgical History Medical Problems: (1) Anxiety State Nos (2) Crohns disease (3) Depressive Disorder Nec (4) Human Immunodeficiency Virus [Hiv] Disease (5) Insomnia (6) Tubal Ligation Status Surgical Problems: (1) History of bowel resection Family History Diabetes mellitus Hypertension Kidney disease Kidney stones Social History Smoking Status: Never Smoker Alcohol Use: heavy Marital Status: single Housing Status: lives with friends Occupation Status: disabled Current/Historical Medications Scheduled Bupropion (Wellbutrin Sr), 200 MG PO BID Buspirone Hcl (Buspirone Hcl), 30 MG PO BID Cholecalciferol (Vitamin D3), 1,000 UNITS PO DAILY Cyanocobalamin (Vitamin B-12), 1,000 MCG PO DAILY Dolutegravir Sodium (Tivicay), 50 MG PO QAM Emtricitabine-Tenofovir Alafen (Descovy 200-25 mg), 1 TAB PO QAM Fluoxetine (Prozac), 40 MG PO QAM Fluoxetine (Prozac), 10 MG PO QAM Gabapentin (Neurontin), 100 MG PO HS Levonorgestrel (Iud) (Mirena), 1 DOSE PV q 5 years Loratadine (Claritin), 10 MG PO QAM Mesalamine (Pentasa), 1,000 MG PO BID Omeprazole (Prilosec), 40 MG PO QAM Phentermine Hcl (Phentermine Hcl), 30 MG PO 1400 Scheduled PRN Alprazolam (Xanax), 0.5 MG PO QID PRN for Anxiety Dicyclomine Hcl (Dicyclomine Hcl), 10 MG PO TID PRN for ABDOMINAL PAIN Hyoscyamine Sulfate (Hyoscyamine Sulfate), 0.125 MG SL TID PRN for belly pain Loperamide Hcl (Loperamide Hcl), 2 MG PO DIRECTED PRN for Diarrhea Promethazine HCl (Promethazine HCl), 25 MG PO TID PRN for Nausea Zolpidem Tartrate (Ambien), 10 MG PO HS PRN Physical Exam Vital Signs Date Time Temp Pulse Resp B/P (MAP) Pulse Ox O2 Delivery O2 Flow Rate FiO2 07/03/17 10:45 36.4 91 18 109/72 98 Room Air 07/03/17 08:26 37.1 104 16 116/76 98 Room Air Physical Exam GENERAL: 47-year-old white female appears in no acute distress. MENTAL Status: Alert and oriented 3. MOUTH: Mucosa is moist PHARYNX: Generalized erythema noted. No edema or exudate noted NECK: Supple, no lymphadenopathy noted. No carotid bruits noted. LUNGS: Clear auscultation without wheezes rales or rhonchi. CARDIAC: Regular rate and rhythm without murmur. Pulses is full and equal throughout. BACK: No CVA tenderness noted. ABDOMEN: Positive bowel sounds all 4 quadrants. Vertical scar noted consistent with prior surgery. No surrounding erythema noted. Soft, generalized abdominal tenderness throughout. Increased over midline. No rebound or rigidity noted EXTREMITIES: No cyanosis or edema noted. Medical Decision & Procedures ER Provider Diagnostic Interpretation: PA CHEST WITH ABDOMINAL SERIES CLINICAL HISTORY: Generalized abdominal pain. Constipation. FINDINGS: A PA chest radiograph is compared to study dated 08/08/2015. The cardiomediastinal silhouette is unremarkable. There is atherosclerotic calcification of the thoracic aorta. The lungs and pleural spaces are clear. No pneumothorax is seen. The bony thorax is grossly intact. Supine and erect abdominal radiographs are correlated with abdominal CT dated 07/01/2017. There is a nonobstructed abdominal bowel gas pattern. Moderate colonic fecal retention is noted. No evidence of intraperitoneal free air is seen. Suture material is seen in the right upper quadrant. There are no abnormal abdominal calcifications. An intrauterine device is seen in the pelvis. There are small pelvic phleboliths. The lumbosacral spine and bony pelvis appear intact. There is a naval piercing. IMPRESSION: 1. No active disease in the chest. 2. Nonobstructed abdominal bowel gas pattern noting moderate colonic fecal retention. Electronically signed by: Garfield Small M.D. Laboratory Results Test 07/03/17 11:14 Medications Administered Medications (Trade) Dose Ordered Sig/Martin Route Start Time Stop Time Status Last Admin Dose Admin Miscellaneous (Soap Suds Enema) 1 ea NOW STAT HI 07/03/17 09:26 07/03/17 09:27 DC 07/03/17 09:55 1 EA Dicyclomine HCl (Bentyl Cap) 20 mg NOW ONCE PO 07/03/17 10:00 07/03/17 10:01 DC 07/03/17 10:12 20 MG ED Course The patient was evaluated. The patient's EMR medication list were reviewed. The patient's CT of July 01, 2017 was unremarkable. There is no evidence of inflammation or infection of the colon. There is no evidence of obstruction. Colonoscopy was also reviewed from June 15, 2017 without any acute findings. Rapid strep was negative. Culture is pending. Urine dip was negative. Culture is pending. I discussed with the patient I did not want to give her narcotics for pain until I evaluated her abdomen for constipation or small bowel obstruction. The patient verbalized understanding. Abdominal series x-ray was ordered interpreted by the radiologist as above without any evidence of obstruction. Moderate amount of fecal retention noted. The patient was independently evaluated by Dr. Mcleod who agreed with treatment plan. The patient was informed of the findings. The patient stated that she was taking MiraLAX and Dulcolax with out any results therefore she was offered a soapsuds enema. The patient was in agreement. The patient was given Bentyl 20 mg p.o. for associated abdominal cramps for enema administration.. The patient was given a soapsuds enema. She only had clear discharge from the enema. I discussed with the patient this is most likely since there is not a lot of stool in the lower colon. I felt she would do better with oral mag citrate. The patient was in agreement and was discharged home in stable condition. Medical Decision Differential diagnosis include bowel obstruction, fecal impaction, constipation Sore throat differential include thrush, strep pharyngitis, viral pharyngitis Medication Reconcilliation Current Medication List: was personally reviewed by me Blood Pressure Screening Patient's blood pressure: Normal blood pressure Impression Primary Impression: Constipation Additional Impression: Sore throat Departure Information Dispostion Home / Self-Care Condition GOOD Referrals RV. Gardiner MD (PCP) Forms HOME CARE DOCUMENTATION FORM, IMPORTANT VISIT INFORMATION Patient Instructions ED Constipation, [facility] Additional Instructions Follow high-fiber diet. Avoid dairy products. Take [id number] mag citrate (whole bottle). You should have results within 24 hours. If your symptoms persist or worsen, follow-up with Dr. Dacosta. If anything shows up on your urine culture or throat culture we will call you. Problem Qualifiers Primary Impression: Constipation Constipation type: unspecified constipation type Qualified Codes: K59.00 - Constipation, unspecified
[2017-07-03 11:42] VITALS: BP 114/75; PULSE 98; O2SAT 99
== END 2017-07-03 11:45 | disposition home or self-care (01) ==
LOC: C.EDB 08:23
DX: K59.00 Constipation, unspecified (principal); J02.9 Acute pharyngitis, unspecified; K50.90 Crohn's disease, unspecified, without complications; Z21 Asymptomatic human immunodeficiency virus [HIV] infection status; F41.9 Anxiety disorder, unspecified; F32.9 Major depressive disorder, single episode, unspecified; Z98.51 Tubal ligation status; Z90.49 Acquired absence of other specified parts of digestive tract; Z98.890 Other specified postprocedural states; Z83.3 Family history of diabetes mellitus; Z82.49 Family history of ischemic heart disease and other diseases of the circulatory system; Z84.1 Family history of disorders of kidney and ureter; Z79.899 Other long term (current) drug therapy

== ENCOUNTER → 2017-07-08 | Outpatient (CLI) | payer OTHER ==
[~2017-07-08] MED LIST changes: -DOXE50CA3 PO; -NITR1OIN PR
--- NOTE | 2017-07-08 13:32 | DIAGNOSTIC IMAGING REPORT ---
ABDOMEN 2VIEW W/PA CHEST RTN HISTORY: 47 years-old Female R10.9 Abdominal [id number] Abnormal x-ray of [id number] acute generalized abdominal pain with cramping and constipation COMPARISON: Acute abdominal series radiographs 07/03/2017, CT 07/01/2017 TECHNIQUE: PA view of the chest with erect and supine views of the abdomen FINDINGS: Cardiomediastinal and hilar silhouettes are within normal limits. There is no pneumothorax, pleural effusion, focal airspace consolidation or overt pulmonary edema. Mild right hemidiaphragmatic elevation with linear subsegmental right basilar opacities suggesting atelectasis. The bones of the chest appear grossly intact. Suture material projects over the right upper abdomen. There is moderate volume of formed colonic stool within the right hemicolon, splenic flexure and descending colon. Bowel gas pattern is nonobstructive. No pneumatosis or pneumoperitoneum identified. No urolith identified. Calcifications of the pelvis suggest phleboliths. IUD noted. IMPRESSION: 1. No acute process of the chest. 2. Nonobstructive bowel gas pattern without pneumoperitoneum. 3. Moderate stool volume suggests constipation. The above report was generated using voice recognition software. It may contain grammatical, syntax or spelling errors. Electronically signed by: Chinedu Navarro M.D. 07/08/2017 1:30 PM Dictated Date/Time: 07/08/2017 1:28 PM
== END | disposition home or self-care (01) ==
LOC: C.RAD 13:01
PROVIDERS: ATTEND Internal Medicine
DX: R10.9 Unspecified abdominal pain (principal); R93.5 Abnormal findings on diagnostic imaging of other abdominal regions, including retroperitoneum

== ENCOUNTER → 2017-09-08 | Outpatient (CLI) | payer OTHER ==
[2017-09-08 10:56] LABS: BASO % 0.6 %; BASO ABS # 0.06 K/uL (0-0.2); EOS % 1.5 %; EOS ABS # 0.15 K/uL (0-0.5); HEMATOCRIT 40.4 % (37-47); HEMOGLOBIN 13.6 g/dL (12.0-16.0); IG# 0.02 K/uL (0.00-0.02); LYMPH % 28.7 %; LYMPH ABS # 2.95 K/uL (1.2-3.4); MEAN CORPUSCULAR HGB CONC 33.7 g/dl (32-36); MEAN PLATELET VOLUME 11.2 fL (7.4-10.4); MONO % 8.2 %; MONO ABS # 0.84 K/uL (0.11-0.59); NEUT % 60.8 %; NEUT ABS # 6.25 K/uL (1.4-6.5); PLATELET COUNT 315 K/uL (130-400); RED CELL DISTRIBUTION WIDTH CV 14.1 % (11.5-14.5); RED CELL DISTRIBUTION WIDTH SD 47.4 fL (36.4-46.3); WHITE BLOOD COUNT 10.27 K/uL (4.8-10.8)
[2017-09-08 13:51] LABS: ALBUMIN 3.5 gm/dl (3.4-5.0); ALT/SGPT 49 U/L (12-78); AST/SGOT 14 U/L (15-37); BLOOD UREA NITROGEN 11 mg/dl (7-18); CALCIUM 8.8 mg/dl (8.5-10.1); CARBON DIOXIDE 29 mmol/L (21-32); CREATININE 0.94 mg/dl (0.60-1.20); GLUCOSE 86 mg/dl (70-99); POTASSIUM 3.7 mmol/L (3.5-5.1); SODIUM 138 mmol/L (136-145)
[2017-09-08 13:53] LABS: ALKALINE PHOSPHATASE 83 U/L (45-117); CHOLESTEROL 126 mg/dl (0-200); LDL CHOLESTEROL CALCULATED 57 mg/dl
== END | disposition home or self-care (01) ==
LOC: C.LABBC 07:37
PROVIDERS: ATTEND Internal Medicine Infectious Disease
DX: B20 Human immunodeficiency virus [HIV] disease (principal)

== ENCOUNTER → 2017-12-11 | Outpatient (CLI) | payer OTHER ==
[~2017-12-11] MED LIST changes: -CHOL1000 PO; +CHOL1TAB46 PO; -CYAN10005 PO; +DOXE50CA3 PO; +DOXY100C2 PO; -EMTR1TAB10 PO; +LINA1CAP PO
[2017-12-11 10:51] LABS: BASO % 0.6 %; BASO ABS # 0.04 K/uL (0-0.2); EOS % 2.1 %; EOS ABS # 0.13 K/uL (0-0.5); HEMATOCRIT 38.9 % (37-47); HEMOGLOBIN 13.1 g/dL (12.0-16.0); LYMPH % 25.7 %; LYMPH ABS # 1.61 K/uL (1.2-3.4); MEAN CELL VOLUME 91.3 fL (80-100); MEAN CORPUSCULAR HEMOGLOBIN 30.8 pg (25-34); MEAN CORPUSCULAR HGB CONC 33.7 g/dl (32-36); MEAN PLATELET VOLUME 12.1 fL (7.4-10.4); MONO % 6.5 %; MONO ABS # 0.41 K/uL (0.11-0.59); NEUT % 65.1 %; NEUT ABS # 4.08 K/uL (1.4-6.5); PLATELET COUNT 236 K/uL (130-400); RED CELL DISTRIBUTION WIDTH CV 13.7 % (11.5-14.5); WHITE BLOOD COUNT 6.27 K/uL (4.8-10.8)
[2017-12-11 11:02] LABS: ALBUMIN 3.6 gm/dl (3.4-5.0); ALKALINE PHOSPHATASE 77 U/L (45-117); ALT/SGPT 20 U/L (12-78); AST/SGOT 15 U/L (15-37); BLOOD UREA NITROGEN 9 mg/dl (7-18); CALCIUM 8.8 mg/dl (8.5-10.1); CARBON DIOXIDE 27 mmol/L (21-32); CHOLESTEROL 154 mg/dl (0-200); GLUCOSE 88 mg/dl (70-99); LDL CHOLESTEROL CALCULATED 92 mg/dl; POTASSIUM 3.6 mmol/L (3.5-5.1); SODIUM 138 mmol/L (136-145)
[2017-12-11 11:09] LABS: FOLLICLE STIMULAT HORMONE 8.99 IU/L
[2017-12-16 17:38] LABS: LSP % CELLS ANALYZED CD4 22 % (30-61); LSP ABSOLUTE CT CD4 398 cells/uL (490-1740)
== END | disposition home or self-care (01) ==
LOC: C.LABBC 07:45
PROVIDERS: ATTEND Internal Medicine Infectious Disease
DX: E55.9 Vitamin D deficiency, unspecified (principal); E53.8 Deficiency of other specified B group vitamins; K90.9 Intestinal malabsorption, unspecified; B20 Human immunodeficiency virus [HIV] disease; R93.5 Abnormal findings on diagnostic imaging of other abdominal regions, including retroperitoneum; N95.9 Unspecified menopausal and perimenopausal disorder

== ENCOUNTER 2022-12-02 05:00 | Observation (INO) ==
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
[2022-12-02] MEDS ORDERED: TRANEXAMIC ACID 1,000 MG **IV Intra-op IV SCH (06:00)
[2022-12-02] MEDS ORDERED: CeleBREX 200 MG CAP PO SCH (06:00)
[2022-12-02] MEDS ORDERED: METOCLOPRAMIDE HCL 10 MG TABLET PO SCH (06:00)
[2022-12-02] MEDS ORDERED: ACETAMINOPHEN 500 MG TAB PO SCH (06:00)
[2022-12-02] MEDS ORDERED: dexAMETHasone**PF** 10 MG/ML VIAL IV SCH (06:00)
[2022-12-02] MEDS ORDERED: ceFAZolin 2000MG 2,000 MG/15 ML SYR IV SCH (06:00)
[2022-12-02] MEDS ORDERED: dexAMETHasone 4 MG TAB PO SCH (06:00)
[2022-12-02] MEDS ORDERED: Scopolamine 1 MG TDSY TD SCH (06:00)
[2022-12-02] MEDS ORDERED: LR 60ML/HR IV SCH (06:00)
[2022-12-02] MEDS ORDERED: FAMOTIDINE 20 MG TAB PO SCH (06:00)
[2022-12-02] MEDS ORDERED: LR 500ML BOLUS, THEN 15ML/HR IV SCH (06:00)
[2022-12-02] MEDS ORDERED: ROPIVACAINE 0.5% 5 MG/ML 30 ML VIAL ONE (06:32)
[2022-12-02] MEDS ORDERED: BUPIVACAINE/EPINEPHRINE 0.5% MPF 1:200,000 30 ML VIAL ONE (06:37)
[2022-12-02] MEDS ORDERED: MIDAZOLAM HCL 1 MG/ML 2ML VIAL ONE (06:40)
[2022-12-02] MEDS ORDERED: fentaNYL citrate PF 100 MCG/2 ML VIAL ONE (06:40)
[2022-12-02] MEDS ORDERED: ONDANSETRON INJ 2 MG/ML 2 ML VIAL IV PRN (06:42)
[2022-12-02] MEDS ORDERED: NALOXONE HCL 0.08 MG in SYRINGE 1.8 ML IV PRN (06:42)
[2022-12-02] MEDS ORDERED: NALOXONE HCL 1 MG in SODIUM CHLORIDE 0.9% 1000ML 1,000 ML IV PRN (06:42)
[2022-12-02] MEDS ORDERED: LACTATED RINGER'S 500 ML IV PRN (06:42)
[2022-12-02] MEDS ORDERED: NALOXONE HCL 0.4 MG/1 ML VIAL/CARP IV PRN ×2 (06:42→09:51)
[2022-12-02] MEDS ORDERED: ePHEDrine sulfate 50 MG/ML AMP IV PRN (06:42)
[2022-12-02] MEDS ORDERED: MoRPHine SULFATE PF 1 MG/ML 10 ML AMP/VIAL INT SPINAL ONE (06:42)
[2022-12-02] MEDS ORDERED: diphenhydrAMINE 50 MG/ML VIAL IV PRN (06:42)
[2022-12-02] MEDS ORDERED: MoRPHine SULFATE 2 MG/ML CARP IV PRN (06:42)
[2022-12-02] MEDS ORDERED: NALBUPHINE HCL INJ 10 MG/ML AMP IV PRN (06:42)
[2022-12-02] MEDS ORDERED: MoRPHine SULFATE PF 1 MG/ML 10 ML AMP/VIAL ONE (06:44)
[2022-12-02] MEDS ORDERED: NO NARCOTICS OR SEDATIVES SCH (06:45)
[2022-12-02] MEDS ORDERED: SODIUM CHLORIDE 0.9% 1000ML 1,000 ML IV SCH (06:45)
[2022-12-02] MEDS ORDERED: DC INTRASPINAL MORPHINE SCH (06:45)
--- NOTE | 2022-12-02 06:55 | History & Physical Bridge Note ---
Date of Service December 02, 2022 History & Physical Bridge Note I have examined the patient, reviewed the History & Physical and in the interval since the performance of the History & Physical I have noted the following changes of clinical significance: no changes noted
--- NOTE | 2022-12-02 08:40 | Operative Report ---
PG Post Operative Report Pre & Post Diagnosis Operation Date: 12/02/22 07:00 Pre-Op Diagnosis: Left Hip Advanced Degenerative Joint Disease Post-Op Diagnosis: Left Hip Advanced Degenerative Joint Disease I identified the patient and participated in the time-out.: Yes Procedure Operation Date: 12/02/22 07:00 Actual Procedures p Left Total Hip Arthroplasty--Uncemented(Left) - Robert Anguiano MD Surgeon Robert Anguiano MD Heel Seat Filler Mitchell Richardson PA-C Estimated Blood Loss 200 Findings Consistent with Post-Op Diagnosis Operative findings revealed advanced left hip arthritis. She had a [id number]-oenl disease in the femoral head and acetabulum. Moderate-sized joint effusion. Fairly minimal osteophyte formation. Specimens Left femoral head sent for pathology Anesthesia Type Spinal MAC Complications none Disposition Accompanied Patient To Recovery: No Indications Patient is a 52-year-old female has had a fairly long history of gradual progressive increasing left hip pain discomfort got markedly worse over the past year. She been through extensive conservative treatment provided by pain clinic as well as our orthopedic staff. This became less successful over time. X-rays show progressive hip arthritis. She elected proceed with total hip arthroplasty. Description of Procedure Operative implants consist of: 1. Biomet G7 size 50 mm acetabular shell. 2. [place] eliminator. 3. 6.5 cancellous acetabular screws 1 at 35 mm length 120 mm length. 4. Highly cross-linked polyethylene liner with a 50 mm outer diameter 32 mm inner diameter. 5. DePuy Corail size 10 short neck 125 degree angle femoral stem. 6. +5/32 mm ceramic articular ball. The patient was taken to the operating, identified, and placed on the operating table supine position. All contact areas were appropriately padded. IV antibiotics tried by anesthesia team. Spinal anesthetic and implement holding area. Stout catheter was placed in sterile fashion. The patient was then placed in the right lateral decubitus position. A roll was placed. A stool burden. Position was used for positioning. Left hip and leg were then prepped and draped in the usual sterile fashion. A posterior lateral approach to the left hip was then performed to a curvilinear incision centered over the greater trochanter. Sharp dissection was carried through subcutaneous tissue level of the IT band and gluteal fascia to the IT band gluteal fascia/longitudinally in line with skin incision. The underlying greater bursa was excised. The piriformis and external rotators along with the posterior hip joint capsule were then released from the posterior aspect of the hip as a single layer. The hip was internally rotated and dislocated. A femoral neck osteotomy cut was made with Final Cut about a centimeter above the lesser trochanter. Femoral head was removed and sent for pathology. The femur was retracted anteriorly. Attention drawn to the acetabulum. The acetabular labrum was excised. The pulmonary fat was excised. Sequential reaming the acetabulum was then performed again with size 43 and progressing up to 49. I reamed a little bit with a 50 reamer and then placed a 50 mm Biomet G7 acetabular cup in about 40 degrees lateral opening and 20 degrees of anteversion. It was fixed with two 6.5 cancellous acetabular screws. Trial liner was placed. Attention drawn to the femur. The proximal femur was entered with cookie-cutter followed by canal finder. Then broached beginning with a size 8 and progressing up to a 10. Get excellent fit of the tendon. We then trialed the hip. The +5 articular ball with a standard neck seemed just too tight. Therefore we elected to use a short neck. With a +5 articular ball of the hip was fully stable in full extension and exter nal rotation and flexion to 90 degrees internal Tatian over 50 degrees. Leg lengths seem equal. I elect to place these implants. All trial implants were removed. [place] hole limiter was placed. Highly cross- linked polyethylene liner was placed. A size 10 KLA short neck 125 degree angle femoral stem was impacted in position. A +5/32 mm ceramic articular ball was placed. Hip was located once again found to be stable. Attention drawn to closing. Wounds irrigated copious pulsatile lavage solution. I did inject locally with 60 cc of half percent Marcaine with epinephrine. The wound was irrigated extensively. The posterior capsule and external rotators were then repaired through drill holes in the posterior trochanter with #2 Tycron suture. The IT band gluteal fascia then closed #1 PDS suture running fashion for the subcutaneous tissues then closed with 2 layers the deep layer #1 Vicryl suture in the subcutaneous tissues with 2-0 Dexon suture in a buried interrupted fashion. Skin was closed skin derrick. Leg was then cleaned and dried and a sterile dressing with Xeroform, 4 fours, sterile ABD pad and foam tape was applied. The patient then transferred to the recovery room in stable condition. The patient tolerated the procedure well and there were no complications. Mitchell Richardson, my physician review assistant, was present for the entire procedure. His assistance was essential and required for appropriate patient positioning, prepping and draping, surgical exposure, performing the technical details of the operation, placement the implants, closure of the wound, and placement of the sterile bandage. I attest to the content of the Intraoperative Record and any orders documented therein. Any exceptions are noted below.
--- NOTE | 2022-12-02 08:58 | XRay Report ---
AP PELVIS, CROSSTABLE LATERAL LEFT HIP History: Left total hip arthroplasty. Degenerative arthritis. Postop. FINDINGS: The patient is status post a left total hip arthroplasty. The hardware is intact. No fractu re or dislocation. Skin derrick are in place. IMPRESSION: Left total hip arthroplasty. No evidence for hardware complication. ACT 112: Negative or not required by law. Electronically signed by: Saurabh Calloway M.D. 12/02/2022 8:55 AM
--- NOTE | 2022-12-02 09:08 | Anesthesiology Progress Note ---
Date of Service December 02, 2022 Anesthesia Post Procedure Vital Signs Vital Signs: Temp Pulse Resp BP Pulse Ox O2 Del Method O2 Flow Rate 12/02/22 08:40 75 14 103/71 97 Oxymask 3 12/02/22 09:00 36.4 C L 75 20 106/78 96 Room Air 12/02/22 08:50 72 20 119/76 98 Room Air 12/02/22 08:30 78 14 98/61 L 99 Oxymask 6 12/02/22 08:24 36.0 C L 75 12 104/71 96 Oxymask 6 12/02/22 05:30 37 C 95 H 20 95/51 L 96 Room Air Pain Intensity Left Hip: Pain Intensity: 6 Transfer of Care Handoff Completed per policy Notes Mental Status: alert / awake / arousable and participated in evaluation Patient Amnestic to Procedure: Yes Nausea / Vomiting: adequately controlled Pain: adequately controlled Airway Patency, RR, SpO2: stable & adequate BP & HR: stable & adequate Hydration State: stable & adequate Anesthetic Complications: no major complications apparent and Pt Satisfied with anesthetic care
[2022-12-02] MEDS ORDERED: MAGNESIUM HYDROXIDE SUSP 30 ML UDC PO PRN (09:51)
[2022-12-02] MEDS ORDERED: DICYCLOMINE HCL 20 MG TAB PO PRN (09:51)
[2022-12-02] MEDS ORDERED: DOCUSATE SODIUM 100 MG CAP PO PRN (09:51)
[2022-12-02] MEDS ORDERED: linaCLOtide 72 MCG CAPSULE PO PRN (09:51)
[2022-12-02] MEDS ORDERED: bisacodyL 10 MG SUPP PR PRN (09:51)
[2022-12-02] MEDS ORDERED: HYDROCORTISONE HC 2.5% CRM 30GM TUBE EXT PRN (09:51)
[2022-12-02] MEDS ORDERED: SENNA 8.6 MG TAB PO SCH ×2 (09:51→21:00)
[2022-12-02] MEDS ORDERED: ALUMINUM/MAGNESIUM SUSP 30 ML UDC PO PRN (09:51)
[2022-12-02] MEDS ORDERED: METOCLOPRAMIDE HCL INJ 5 MG/ML 2 ML VIAL IV PRN (09:51)
[2022-12-02] MEDS ORDERED: ONDANSETRON INJ 2 MG/ML 2 ML VIAL ONE (10:13)
[2022-12-02] MEDS ORDERED: KETOROLAC 30 MG/ML VIAL ONE (10:13)
[2022-12-02] MEDS ORDERED: PROPOFOL IV EMULSION 10 MG/ML 20 ML VIAL IV ONE (10:13)
[2022-12-02] MEDS: PANTOprazole 40 MG TAB PO SCH (10:34)
[2022-12-02] MEDS: CYANOCOBALAMIN (B-12) 500 MCG TABLET PO SCH (10:34)
[2022-12-02] MEDS: LINACLOTIDE 145 MCG CAPSULE PO SCH (10:35)
[2022-12-02] MEDS: LORATADINE 10 MG TAB PO SCH (10:35)
[2022-12-02] MEDS: DOCUSATE SODIUM 100 MG CAP PO SCH ×2 (10:35→20:10)
[2022-12-02] MEDS: FLUoxetine HCL 20 MG CAP PO SCH (10:35)
[2022-12-02] MEDS: busPIRone 5 MG TAB PO SCH (10:35)
[2022-12-02] MEDS: buPROPion HCl 100 MG TABLET PO SCH (10:36)
[2022-12-02] MEDS: ASPIRIN 81 MG ECTAB PO SCH ×2 (10:36→20:10)
[2022-12-02] MEDS: GABAPENTIN 100 MG CAP PO SCH ×3 (10:36→20:10)
[2022-12-02] MEDS: SODIUM CHLORIDE 0.9% 1000ML 1,000 ML IV SCH ×2 (10:37→19:30)
[2022-12-02] MEDS: MULTIVITAMIN TAB PO SCH (10:37)
[2022-12-02] MEDS ORDERED: BIKTARVY PO SCH (11:00)
[2022-12-02] MEDS: KETOROLAC 30 MG/ML VIAL IV SCH ×2 (12:10→17:54)
[2022-12-02] MEDS: ACETAMINOPHEN 500 MG TAB PO SCH ×2 (13:42→22:06)
[2022-12-02] MEDS: ceFAZolin 1000MG 1,000 MG/7.5 ML SYR IV SCH ×2 (13:45→22:05)
[2022-12-02] MEDS ORDERED: TRANEXAMIC ACID / 0.7% NACL 1,000 MG/100 ML BAG IV SCH (14:30)
[2022-12-02] MEDS: ASCORBIC ACID 500 MG TAB PO SCH (16:24)
[2022-12-02] MEDS: Scopolamine CHECK PATCH PLACEMENT SCH (16:24)
[2022-12-02] MEDS ORDERED: DOXEPIN HCL 50 MG CAPSULE PO SCH (21:00)
[2022-12-03] MEDS: Scopolamine CHECK PATCH PLACEMENT SCH ×2 (00:20→07:20)
[2022-12-03] MEDS: KETOROLAC 30 MG/ML VIAL IV SCH ×2 (00:20→05:04)
[2022-12-03] MEDS ORDERED: ALPRAZolam 0.5 MG TABLET PO PRN (00:43)
[2022-12-03] MEDS ORDERED: ZOLPIDEM TARTRATE 10 MG TAB PO PRN (00:43)
[2022-12-03] MEDS ORDERED: hydrOXYzine HCl 10 MG TAB PO PRN (00:43)
[2022-12-03] MEDS ORDERED: ONDANSETRON INJ 2 MG/ML 2 ML VIAL IV PRN (00:43)
[2022-12-03] MEDS ORDERED: diphenhydrAMINE Capsule 25 MG CAP PO PRN (00:43)
[2022-12-03] MEDS ORDERED: oxyCODONE HCL IR 5 MG TAB (IMMEDIATE RELEASE) PO PRN (00:43)
[2022-12-03] MEDS ORDERED: HYDROmorphone INJ 0.5 MG/0.5 ML SYR IV PRN (00:43)
[2022-12-03] MEDS: ACETAMINOPHEN 500 MG TAB PO SCH (05:04)
[2022-12-03 06:54] LABS: Basophils # (auto) 0.03 K/uL (0-0.2); Basophils % (auto) 0.2 %; Hemoglobin 10.3 g/dl (12.0-16.0); Immature Granulocytes # (auto) 0.07 K/uL (0.01-0.20); Immature Granulocytes % (auto) 0.5 %; Lymphocytes # (auto) 1.63 K/uL (1.2-3.4); Lymphocytes % (auto) 10.9 %; Mean Corpuscular Hgb Conc 35.5 g/dL (32.0-36.0); Mean Corpuscular Volume 90.1 fL (80.0-100.0); Mean Platelet Volume 12.2 fL (9.4-12.4); Monocytes # (auto) 1.19 K/uL (0.11-0.59); Monocytes % (auto) 7.9 %; Neutrophils # (auto) 12.07 K/uL (1.40-6.50); Neutrophils % (auto) 80.5 %; Platelet Count 178 K/uL (130-400); RDW Coefficient of Variation 13.7 % (11.5-14.5); RDW Standard Deviation 45.4 fL (36.4-46.3); Red Blood Count 3.22 M/uL (4.20-5.40); White Blood Count 14.99 K/ul (4.8-10.8)
[2022-12-03 07:15] LABS: BUN Creatinine Ratio 10.3 (10-20); Calcium 8.6 mg/dl (8.6-10.3); Creatinine Clr Calc Pharmacy 60.9 ml/min; Est GFR (African American) 77.8 ml/min; Est GFR (Non-African American) 67.2 ml/min; Potassium 3.6 mmol/L (3.5-5.1)
[2022-12-03] MEDS: FLUoxetine HCL 20 MG CAP PO SCH (07:18)
[2022-12-03] MEDS: PANTOprazole 40 MG TAB PO SCH (07:18)
[2022-12-03] MEDS: MULTIVITAMIN TAB PO SCH (07:18)
[2022-12-03] MEDS: LINACLOTIDE 145 MCG CAPSULE PO SCH (07:19)
[2022-12-03] MEDS: DOCUSATE SODIUM 100 MG CAP PO SCH (07:19)
[2022-12-03] MEDS: busPIRone 5 MG TAB PO SCH (07:19)
[2022-12-03] MEDS: CYANOCOBALAMIN (B-12) 500 MCG TABLET PO SCH (07:19)
[2022-12-03] MEDS: buPROPion HCl 100 MG TABLET PO SCH (07:20)
[2022-12-03] MEDS: ASCORBIC ACID 500 MG TAB PO SCH (07:20)
[2022-12-03] MEDS: LORATADINE 10 MG TAB PO SCH (07:20)
[2022-12-03] MEDS: GABAPENTIN 100 MG CAP PO SCH (07:20)
[2022-12-03] MEDS: ASPIRIN 81 MG ECTAB PO SCH (07:20)
[2022-12-03] MEDS ORDERED: dexAMETHasone 10 MG in SYRINGE 0 ML IV SCH (08:00)
--- NOTE | 2022-12-03 09:02 | Orthopedic Progress Note ---
Date of Service December 03, 2022 Assessment & Plan (1) Status post total hip replacement, left: 52-year-old female postop day 1 from left hip replacement doing well. Pain is controlled. Hips located. She is neurologically intact. Plan: 1. DVT prophylaxis including thigh-high teds, SCDs, aspirin twice a day. 2. Pain control doing well with current pain regimen 3 PT OT weight-bear as tolerated left total hip protocol. 4. Disposition plan to discharge to home with home health if she does okay in therapy today Subjective . 52-year-old female postop day 1 from left total hip placement. She is doing well patient got up and walked some last evening. Pain is controlled. Denies any chest pain or shortness of breath. She is hoping to go home. Review of Systems All systems reviewed & are unremarkable except as noted in HPI & below. Physical Exam . Physical exam shows a pleasant middle-age female patient is lying in bed this morning looks pretty comfortable. Examination left hip reveals the dressing clean dry and intact. Leg lengths are equal. She can dorsiflex and plantarflex her foot appropriately. She is neurologically intact. Respiratory normal respiratory effort, lungs clear to auscultation Cardiovascular RRR, no murmur, no edema Gastrointestinal (Abdomen) normal bowel sounds, soft, nontender, no hepatosplenomegaly Results & Data Results & Data Laboratory Results . Hemoglobin is 10.3. Hematocrit is 29.0. Electrolytes are stable. Diagnostic Findings . PG Care Time/CCT Total # of Minutes Spent Total Time Spent with Patient: Total time spent is greater than 50% in coordination of care (as documented) at patient's floor/unit and/or counseling patient: Coding Level of Care Code 38471 Post Operative Follow-Up Diagnoses Status post total hip replacement, left Z96.642
[2022-12-08] MEDS ORDERED: CHOLECALCIFEROL 5,000 UNITS 125 MCG TAB PO SCH (09:00)
== END 2022-12-03 10:37 | disposition home health service (06) ==
LOC: 3E 05:00 → ASU 05:00